=== PATIENT | male | born 1985 | race Caucasian/White ===

== ENCOUNTER 2020-11-01 19:04 | Inpatient (IN) | payer OTHER ==
[~2020-11-01] VITALS: Ht 177.8 cm; Wt 110.4 kg
[2020-11-01 21:48] LABS: BASOPHIL 0.2 % (0-2); EOSINOPHIL 0.3 % (0-5); HCT 46.2 % (42.0-52.0); LYMPHOCYTE 6.2 % (15-48); MCHC 34.6 g/dL (32.0-36.0); MCV 92.4 fL (78.0-100.0); MONOCYTE 6.2 % (0-12); MPV 11.3 fL (6.0-9.5); NEUTROPHIL 86.7 % (41-80); NRBC 0; PLT 164 K/uL (150-400); RDW 12.9 % (11.5-14.0); WBC 11.8 K/uL (4.0-10.5)
[2020-11-01 22:06] LABS: ALBUMIN 3.5 g/dL (3.4-5.0); BILIRUBIN - TOTAL 0.5 mg/dL (0.2-1.0); BUN/CREAT RATIO (CALC) 7.9 RATIO; CREATININE 1.26 mg/dL (0.67-1.17); MAGNESIUM 1.9 mg/dL (1.8-2.4); POTASSIUM 3.9 mmol/L (3.5-5.1); TOTAL PROTEIN 7.5 g/dL (6.4-8.2)
[2020-11-01 22:28] LABS: CORONAVIRUS 2019 SARS-COV-2 NEGATIVE (NEGATIVE); INFLUENZA A NAA NEGATIVE (NEGATIVE)
[2020-11-01 23:52] LABS: BILIRUBIN NEGATIVE (NEGATIVE); BLOOD NEGATIVE Ery/uL (NEGATIVE); CLARITY CLEAR (CLEAR); COLOR YELLOW (YELLOW); GLUCOSE (U) NORMAL (NORMAL); LEUKOCYTES NEGATIVE Leu/uL (NEGATIVE); NITRITE NEGATIVE (NEGATIVE); PROTEIN TRACE (LOW) mg/dL (NEGATIVE); SPECIFIC GRAVITY >=1.030 (1.001-1.030); UROBILINOGEN 0.2 mg/dL (0.2-1.0)
[2020-11-02 01:19] LABS: MONOSPOT (MONONUCLEOSIS) NEGATIVE (NEGATIVE)
[2020-11-02] MEDS ORDERED: NEURAPTINE1 GM PO (02:15)
[2020-11-02] MEDS ORDERED: MOTRIN100 MG/5 M PO (02:16)
[2020-11-02 06:14] LABS: BASOPHIL 0.1 % (0-2); EOSINOPHIL 0.2 % (0-5); HCT 41.7 % (42.0-52.0); HGB 14.6 g/dl (13.2-18.0); LYMPHOCYTE 10.9 % (15-48); MCH 32.5 pg (25.0-31.0); MCV 92.9 fL (78.0-100.0); MONOCYTE 6.3 % (0-12); MPV 11.3 fL (6.0-9.5); NEUTROPHIL 82.2 % (41-80); NRBC 0; PLT 146 K/uL (150-400); RBC 4.49 M/uL (4.70-6.00); RDW 12.8 % (11.5-14.0); WBC 8.9 K/uL (4.0-10.5)
[2020-11-02 06:41] LABS: CREATININE 1.12 mg/dL (0.67-1.17); POTASSIUM 3.8 mmol/L (3.5-5.1)
--- NOTE | 2020-11-02 16:12 | NUR ---
11/02/20 Ms. Pacheco lives at home with his spouse and 2 children. He has been off from work for a year. His unemployment was discontinued. The family receives foodstamps. Mr. Pacheco's parents assit the family finanacially. Tristin Pacheco was provided with a list of financial community resources and educated to Vocational rehabilitation services. - No other discharge planning needs have been identified.
[2020-11-03 05:51] LABS: BASOPHIL 0.4 % (0-2); EOSINOPHIL 6.1 % (0-5); HCT 39.3 % (42.0-52.0); HGB 13.7 g/dl (13.2-18.0); MCHC 34.9 g/dL (32.0-36.0); MCV 91.8 fL (78.0-100.0); MONOCYTE 12.7 % (0-12); MPV 11.5 fL (6.0-9.5); NEUTROPHIL 52.6 % (41-80); NRBC 0; PLT 156 K/uL (150-400); RBC 4.28 M/uL (4.70-6.00); WBC 5.3 K/uL (4.0-10.5)
[2020-11-03 06:08] LABS: ALBUMIN 2.8 g/dL (3.4-5.0); BILIRUBIN - TOTAL 0.3 mg/dL (0.2-1.0); BUN/CREAT RATIO (CALC) 5.4 RATIO; CREATININE 0.92 mg/dL (0.67-1.17); GLOBULIN (CALCULATION) 3.5 g/dL; POTASSIUM 3.6 mmol/L (3.5-5.1); TOTAL PROTEIN 6.3 g/dL (6.4-8.2)
--- NOTE | 2020-11-03 15:21 | NUR ---
11/03/20 Patient left AMA.
== END 2020-11-03 11:35 | disposition left against medical advice (07) | DRG 872 ==
LOC: FER 19:04 → FMS 11-02 01:04
PROVIDERS: Emergency Medicine Emergency Medical Services; Internal Medicine; Nurse Practitioner; ADMIT Internal Medicine
DX: A41.9 Sepsis, unspecified organism (principal); K52.9 Noninfective gastroenteritis and colitis, unspecified; R65.20 Severe sepsis without septic shock; F17.210 Nicotine dependence, cigarettes, uncomplicated; F41.9 Anxiety disorder, unspecified; Z20.822 Contact with and (suspected) exposure to COVID-19; Z79.899 Other long term (current) drug therapy; Z90.49 Acquired absence of other specified parts of digestive tract; Z98.890 Other specified postprocedural states; Z88.0 Allergy status to penicillin; Z88.6 Allergy status to analgesic agent; J44.9 Chronic obstructive pulmonary disease, unspecified
CPT/HCPCS: 36415; 71250; 80048; 80053; 81003; 83605; 83690; 83735; 85025; 86140; 86308; 87040; 87045; 87046; 87088; 87205; 87449; 87880; C9113; J1170; J1885; J1956; J2270; J2405; J7030; U0002

== ENCOUNTER 2021-12-20 17:39 | Emergency (ER) | payer OTHER ==
[~2021-12-20 17:39] MED LIST: MOTRIN100 MG/5 M PO; NEURAPTINE1 GM PO
[2021-12-20 18:48] LABS: BASOPHIL 0.4 % (0-2); EOSINOPHIL 2.8 % (0-5); HCT 43.9 % (42.0-52.0); HGB 15.6 g/dl (13.2-18.0); LYMPHOCYTE 6.5 % (15-48); MCH 31.9 pg (25.0-31.0); MCHC 35.5 g/dL (32.0-36.0); MCV 89.8 fL (78.0-100.0); MONOCYTE 8.2 % (0-12); MPV 11.2 fL (6.0-9.5); NEUTROPHIL 81.7 % (41-80); NRBC 0; PLT 184 K/uL (150-400); RBC 4.89 M/uL (4.70-6.00); RDW 12.7 % (11.5-14.0); WBC 7.2 K/uL (4.0-10.5)
[2021-12-20 18:55] LABS: BILIRUBIN NEGATIVE (NEGATIVE); BLOOD NEGATIVE Ery/uL (NEGATIVE); CLARITY CLEAR (CLEAR); COLOR YELLOW (YELLOW); GLUCOSE (U) NORMAL (NORMAL); LEUKOCYTES NEGATIVE Leu/uL (NEGATIVE); NITRITE NEGATIVE (NEGATIVE); PROTEIN NEGATIVE (NEGATIVE); pH 7.5 (5.0-9.0)
[2021-12-20 19:02] LABS: INFLUENZA A NAA NEGATIVE (NEGATIVE)
[2021-12-20 19:03] LABS: CORONAVIRUS 2019 SARS-COV-2 POSITIVE (NEGATIVE)
[2021-12-20 19:09] LABS: ALBUMIN 3.7 g/dL (3.4-5.0); BILIRUBIN - TOTAL 0.4 mg/dL (0.2-1.0); BUN/CREAT RATIO (CALC) 11.8 RATIO; CREATININE 1.02 mg/dL (0.67-1.17); POTASSIUM 3.4 mmol/L (3.5-5.1); TOTAL PROTEIN 6.7 g/dL (6.4-8.2)
== END 2021-12-20 21:10 | disposition home or self-care (01) ==
LOC: FER 17:39
PROVIDERS: Nurse Practitioner Family
DX: U07.1 COVID-19 (principal); F17.210 Nicotine dependence, cigarettes, uncomplicated; Z88.0 Allergy status to penicillin; Z88.6 Allergy status to analgesic agent; Z91.040 Latex allergy status; Z28.310 Unvaccinated for COVID-19
CPT/HCPCS: 36415; 80053; 81003; 85025; J7030; U0002